=== PATIENT | male | born 1950 ===

== ENCOUNTER → 2019-01-30 | Outpatient (REF) | payer MEDICARE, BC ==
[~2019-01-30] MED LIST: AMLO-127 PO; ASPI-274 PO; ATOR10TA24 PO; ATOV1TAB17 PO; LANS15CA54 PO; OMEP-218 PO; RAMI10CA93 PO; TEST75PE4 IL
== END ==
LOC: ZZSENDIN 12:00
PROVIDERS: ATTEND Urology
DX: N41.1 Chronic prostatitis (principal); N42.89 Other specified disorders of prostate
CPT/HCPCS: 88305; 88344